=== PATIENT | male | born 2000 | race Caucasian/White ===

== ENCOUNTER 2019-04-17 11:29 | Emergency (ER) | payer OTHER ==
[~2019-04-17] VITALS: Ht 188 cm; Wt 101.1 kg
[2019-04-17] MEDS ORDERED: FLUORESCEIN OPHTH 1 MG STRIP OD ONE (12:15)
[2019-04-17] MEDS ORDERED: TETRACAINE 0.5% OPHTH SOLN 4ML OD ONE (12:15)
--- NOTE | 2019-04-17 13:21 | REP ---
CT ORBITS WITHOUT CONTRAST: HISTORY: Right eye trauma. The globes, optic nerves, and rectus muscles are normal in appearance. There is no orbital lesion. There is no fracture. Minimal mucosal thickening is present in the right ethmoid and left maxillary sinuses. The remaining visualized sinuses are clear. IMPRESSION: Sinus mucosal thickening as described above. Electronically Signed by Emil Marin MD 04/17/2019 06:10 P
[2019-04-17 13:50] VITALS: BP 155/83
== END 2019-04-17 14:07 | disposition home or self-care (01) ==
LOC: M ED 11:29
DX: S05.31XA Ocular laceration without prolapse or loss of intraocular tissue, right eye, initial encounter (principal); W22.8XXA Striking against or struck by other objects, initial encounter; Y92.138 Other place on military base as the place of occurrence of the external cause; Y99.1 Military activity

== ENCOUNTER 2021-06-11 17:20 | Emergency (ER) | payer OTHER ==
[~2021-06-11] VITALS: Ht 185.4 cm; Wt 106.7 kg
--- NOTE | 2021-06-11 19:11 | REP ---
INDICATION: fall. COMPARISON: None. TECHNIQUE: Three views of the left shoulder are obtained. FINDINGS: Three views of the left shoulder demonstrate normal alignment of the glenohumeral and acromioclavicular joints. Periarticular soft tissues are unremarkable. No fracture or subluxation is seen. IMPRESSION: A negative radiographs of the left shoulder. <Electronically signed by Anthony Gates > 06/11/21 [id number]
--- NOTE | 2021-06-11 19:13 | REP ---
INDICATION: fall. COMPARISON: None. TECHNIQUE: Four views of the left elbow. FINDINGS: Four views of the left elbow demonstrate no evidence of fracture or subluxation. There is no evidence of joint effusion. Oblique radiographic view shows possible calcifications in the soft tissues at the lateral epicondyle. These are not visible on the frontal view and may be artifactual. The do not appear to be chip fracture fragments. IMPRESSION: No fracture seen. Question dystrophic calcifications versus artifact adjacent to the lateral epicondyle on 1 of the oblique views. No joint effusion seen. <Electronically signed by Anthony Gates > 06/11/21 [id number]
[2021-06-11 19:40] VITALS: BP 129/76
== END 2021-06-11 19:40 | disposition home or self-care (01) ==
LOC: M ED 17:20
DX: S46.211A Strain of muscle, fascia and tendon of other parts of biceps, right arm, initial encounter (principal); V86.56XA Driver of dirt bike or motor/cross bike injured in nontraffic accident, initial encounter; Y92.89 Other specified places as the place of occurrence of the external cause; Y93.89 Activity, other specified; Y99.8 Other external cause status

== ENCOUNTER 2021-11-08 09:31 | Emergency (ER) | payer OTHER ==
[~2021-11-08] VITALS: Ht 185.4 cm; Wt 109.1 kg
[2021-11-08 10:27] LABS: BASO # 0.1 10^3/uL (0.0-0.2); BASO % 0.9 % (0.0-1.0); EOS # 0.2 10^3/uL (0.0-0.5); EOS % 2.6 % (0.0-3.0); HEMATOCRIT 47.2 % (42.0-52.0); HEMOGLOBIN 15.8 g/dl (13.5-17.5); LYMPH # 1.6 10^3/uL (1.5-5.0); LYMPH % 28.2 % (24.0-44.0); MEAN CORPUSCULAR HEMOGLOBIN 28.5 pg (27.0-33.0); MEAN CORPUSCULAR HGB CONC 33.5 g/dl (32.0-36.5); MEAN CORPUSCULAR VOLUME 85.2 fl (80.0-96.0); MONO # 0.5 10^3/uL (0.0-0.8); MONO % 8.1 % (2.0-8.0); NEUTROPHILS # 3.5 10^3/uL (1.5-8.5); NEUTROPHILS % 59.9 % (36.0-66.0); PLATELET COUNT, AUTOMATED 196 10^3/uL (150-450); RED BLOOD COUNT 5.54 10^6/uL (4.30-6.10); WHITE BLOOD COUNT 5.8 10^3/uL (4.0-10.0)
[2021-11-08 10:30] LABS: APPEARANCE, URINE MANUAL CLEAR (CLEAR); COLOR, URINE MANUAL COLORLESS (YELLOW); SPECIFIC GRAVITY,URINE MANUAL 1.005 (1.002-1.035)
[2021-11-08 10:31] LABS: BILIRUBIN, URINE MANUAL NEGATIVE (NEGATIVE); BLOOD URINE MANUAL NEGATIVE (NEGATIVE); GLUCOSE, URINE (UA) MANUAL NEGATIVE (NEGATIVE); KETONE, URINE MANUAL NEGATIVE (NEGATIVE); LEUKOCYTE ESTERASE, URINE MAN NEGATIVE (NEGATIVE); NITRITE, URINE MANUAL NEGATIVE (NEGATIVE); PROTEIN, URINE MANUAL NEGATIVE (NEGATIVE); UROBILINOGEN, URINE MANUAL NORMAL (NORMAL)
[2021-11-08 11:06] LABS: ALBUMIN 4.4 GM/DL (3.2-5.2); ALT/SGPT 25 U/L (12-78); BILIRUBIN,DIRECT 0.1 MG/DL (0.0-0.2); BILIRUBIN,TOTAL 0.3 MG/DL (0.2-1.0); BLOOD UREA NITROGEN 12 MG/DL (7-18); CALCIUM LEVEL 9.6 MG/DL (8.5-10.1); CARBON DIOXIDE LEVEL 27 MEQ/L (21-32); CHLORIDE LEVEL 103 MEQ/L (98-107); CREATININE FOR GFR 0.96 MG/DL (0.70-1.30); GLOMERULAR FILTRATION RATE > 60.0 (>60); GLUCOSE, FASTING 95 MG/DL (70-100); LIPASE 151 U/L (73-393); SODIUM LEVEL 137 MEQ/L (136-145); TOTAL PROTEIN 7.7 GM/DL (6.4-8.2)
[2021-11-08] MEDS ORDERED: AMOX500C PO (11:13)
[2021-11-08 11:26] VITALS: BP 137/75
== END 2021-11-08 11:33 | disposition home or self-care (01) ==
LOC: M ED 09:31
DX: J02.0 Streptococcal pharyngitis (principal); R51.9 Headache, unspecified